=== PATIENT | female | born 1970 | race Caucasian/White ===

== ENCOUNTER 2018-09-23 11:02 | Emergency (ER) | payer MEDICAID ==
[~2018-09-23] VITALS: Ht 165.1 cm; Wt 44.8 kg
[2018-09-23 11:07] VITALS: BP 134/73
[2018-09-23] MEDS ORDERED: SODIUM CHLORIDE FLUSH 10ML SYR IVF ONE (11:30)
[2018-09-23] MEDS ORDERED: ASPIRIN 81 MG TABLET CHEW PO ONE (11:30)
--- NOTE | 2018-09-23 11:51 | NUR ---
THIS IS A 48 Y/O FEMALE ARRIVING TO THE ED WITH C/O OF CHEST PRESSURE AND PAIN TO RIGHT AND LEFT SIDES. PT DESCRIBES PAIN PRESSURE, SHARP AND TIGHTNESS AND BELIEVES SHE NEEDS AN EKG. PT ON ARRIVAL AMBULATES WITHOUT DISTRESS AND IS BEHAVING ANXIOUSLY AND TALKING IN THE ROOM ABOUT HOW TIRED SHE IS. PT HAS NO OBIVIOUS SIGNS OF TRAUMA AND EQUAL CHEST RISE AND CTA ON ALL LUNG DHALIWAL. PT CONNECTED TO MONITORS AND CALL LIGHT IN REACH. AWAITING FURHTER ORDERS.
[2018-09-23] MEDS ORDERED: ASPIRIN 81 MG TABLET CHEW ONE ×2 (11:55→12:16)
--- NOTE | 2018-09-23 11:57 | NUR ---
REPORT TO JACQUIE COREAS RN.
[2018-09-23 12:12] LABS: ALBUMIN 3.7 g/dL (3.4-5.0); ANION GAP 5 mmol/L (5-15); BASOPHILS # (AUTO) 0.02 x10^3/uL (0-0.1); BASOPHILS % (AUTO) 0 % (0-1); CALCIUM 8.6 mg/dL (8.5-10.1); CHLORIDE 113 mmol/L (98-107); EOSINOPHILS # (AUTO) 0.06 x10^3/uL (0-0.4); EOSINOPHILS % (AUTO) 1 % (1-7); LYMPHOCYTES # (AUTO) 1.31 x10^3/uL (1-3.4); LYMPHOCYTES % (AUTO) 18 % (22-44); MD NO; MEAN CORPUSCULAR HEMOGLOBIN 29.8 pg (27.0-34.8); MEAN CORPUSCULAR HGB CONC 33.7 g/dL (32.4-35.8); MEAN CORPUSCULAR VOLUME 88.3 fL (80-100); MEAN PLATELET VOLUME 8.6 fL (7.4-10.4); MONOCYTES # (AUTO) 0.57 x10^3/uL (0.2-0.8); MONOCYTES % (AUTO) 8 % (2-9); NEUTROPHILS # (AUTO) 5.21 x10^3/uL (1.8-6.8); NEUTROPHILS % (AUTO) 73 % (42-75); PLATELET COUNT 234 x10^3/uL (130-400); RED BLOOD COUNT 4.41 x10^6/uL (3.82-5.3); RED CELL DISTRIBUTION WIDTH 14.7 % (9.6-15.2)
[2018-09-23 12:19] LABS: TROPONIN I < 0.015 ng/mL (0.000-0.045)
--- NOTE | 2018-09-23 12:29 | NUR ---
ALL RESULTS BACK AT THIS TIME, CHART UP FOR RECHECK
--- NOTE | 2018-09-23 13:04 | NUR ---
Patient/Caregiver given discharge instructions and they have confirmed that they understand the instructions. Patient ambulatory with steady gait.
== END 2018-09-23 13:04 | disposition home or self-care (01) ==
LOC: ED 12:52
DX: R07.2 Precordial pain (principal)
CPT/HCPCS: 36415; 71045; 80048; 82040; 84484; 85025; 93005; 99284

== ENCOUNTER 2018-09-30 14:32 | Emergency (ER) | payer MEDICAID ==
[~2018-09-30] VITALS: Ht 165.1 cm; Wt 65.5 kg
[2018-09-30 14:35] VITALS: BP 142/92
[2018-09-30] MEDS ORDERED: DEXAMETHASONE 4 MG/ML, 1ML PO ONE (15:30)
[2018-09-30] MEDS ORDERED: DEXAMETHASONE 4 MG/ML, 5ML ONE (15:37)
--- NOTE | 2018-09-30 15:54 | NUR ---
Patient/Caregiver given discharge instructions and they have confirmed that they understand the instructions. Patient ambulatory with steady gait.
== END 2018-09-30 15:56 | disposition home or self-care (01) ==
LOC: ED 15:50
DX: J02.8 Acute pharyngitis due to other specified organisms (principal); I10 Essential (primary) hypertension
CPT/HCPCS: 87081; 87880; 99283; J1100; 87147

== ENCOUNTER 2018-10-04 23:40 | Emergency (ER) | payer MEDICAID ==
[~2018-10-04] VITALS: Ht 165.1 cm; Wt 65.0 kg
[2018-10-04 23:41] VITALS: BP 119/69
--- NOTE | 2018-10-05 01:00 | NUR ---
pt to room from lobby
--- NOTE | 2018-10-05 01:17 | NUR ---
ENTERED ROOM TO MEET PT. PT NOT AROUSABLE TO LOUD VERBAL COMMAND. PT AWAKENS TO GENTLE TOUCH. PT STATES HER CHEST PAIN IS NOW GONE. PT DOES NOT ANSWER QUESTION OF WHAT SHE WOULD LIKE TO DO FOR HER SHE QUICKLY FALLS BACK TO SLEEP.
[2018-10-05 02:35] LABS: BASOPHILS # (AUTO) 0.04 x10^3/uL (0-0.1); BASOPHILS % (AUTO) 1 % (0-1); EOSINOPHILS # (AUTO) 0.11 x10^3/uL (0-0.4); EOSINOPHILS % (AUTO) 2 % (1-7); LYMPHOCYTES # (AUTO) 2.46 x10^3/uL (1-3.4); LYMPHOCYTES % (AUTO) 35 % (22-44); MD NO; MEAN CORPUSCULAR HEMOGLOBIN 29.6 pg (27.0-34.8); MEAN CORPUSCULAR HGB CONC 33.8 g/dL (32.4-35.8); MEAN CORPUSCULAR VOLUME 87.4 fL (80-100); MEAN PLATELET VOLUME 8.3 fL (7.4-10.4); MONOCYTES % (AUTO) 7 % (2-9); NEUTROPHILS # (AUTO) 3.92 x10^3/uL (1.8-6.8); NEUTROPHILS % (AUTO) 56 % (42-75); PLATELET COUNT 235 x10^3/uL (130-400); RED BLOOD COUNT 4.64 x10^6/uL (3.82-5.3); RED CELL DISTRIBUTION WIDTH 14.5 % (9.6-15.2)
--- NOTE | 2018-10-05 02:47 | NUR ---
Break RN: Patient back from X ray.
[2018-10-05 02:48] LABS: ALANINE AMINOTRANSFERASE 24 U/L (12-78); ALBUMIN 3.5 g/dL (3.4-5.0); ANION GAP 3 mmol/L (5-15); CALCIUM 8.4 mg/dL (8.5-10.1); CHLORIDE 113 mmol/L (98-107); CREATININE 0.84 mg/dL (0.55-1.02)
[2018-10-05 02:50] LABS: ALKALINE PHOSPHATASE 102 U/L (45-117); BILIRUBIN,TOTAL 0.1 mg/dL (0.2-1.0); TOTAL PROTEIN 6.3 g/dL (6.4-8.2)
--- NOTE | 2018-10-05 03:31 | NUR ---
PT GIVEN DC INSTRUCTIONS. PT REQUIRING MUCH ENCOURAGEMENT TO GET OUT OF BED.
--- NOTE | 2018-10-05 03:35 | NUR ---
PT IN ROOM "ROLLING A CIG" PT WAS INFORMED IT IS TIME TO LEAVE. PT VERBALLY UNCOOPERATIVE. PT TOOK MUCH ENCOURAGEMENT TO LEAVE.
== END 2018-10-05 03:38 | disposition home or self-care (01) ==
LOC: ED 10-05 02:13
DX: R07.89 Other chest pain (principal); G89.29 Other chronic pain; M54.6 Pain in thoracic spine; I10 Essential (primary) hypertension; F17.200 Nicotine dependence, unspecified, uncomplicated
CPT/HCPCS: 36415; 71046; 80053; 83690; 85025; 93005; 99284

== ENCOUNTER 2018-10-12 17:14 | Emergency (ER) | payer MEDICAID ==
[~2018-10-12] VITALS: Ht 165.1 cm; Wt 60.0 kg
--- NOTE | 2018-10-12 17:36 | NUR ---
PT YELLING AND CRYING INTERMITTENTLY, INCONSULABLE AND SWEARING. PT UNCOOPERATIVE WITH ASSESSMENT
[2018-10-12] MEDS ORDERED: BICILLIN-LA 1,200,000 UNITS/2 ML IM ONE (18:00)
--- NOTE | 2018-10-12 18:33 | NUR ---
Patient/Caregiver given discharge instructions and they have confirmed that they understand the instructions. Patient ambulatory with steady gait.
--- NOTE | 2018-10-12 18:34 | NUR ---
Patient refused DC vitals.
== END 2018-10-12 18:34 | disposition home or self-care (01) ==
LOC: ED 17:24
DX: K02.9 Dental caries, unspecified (principal); I10 Essential (primary) hypertension; Z87.891 Personal history of nicotine dependence
CPT/HCPCS: 64400; 96372; 99284; J0561

== ENCOUNTER 2019-04-04 01:25 | Emergency (ER) | payer MEDICAID ==
[~2019-04-04] VITALS: Ht 165.1 cm; Wt 62.0 kg
[2019-04-04 01:26] VITALS: BP 130/85
[2019-04-04] MEDS ORDERED: ACETAMINOPHEN 500 MG TABLET ONE (01:41)
[2019-04-04] MEDS ORDERED: ACETAMINOPHEN 500 MG TABLET PO ONE (02:00)
== END 2019-04-04 02:19 | disposition home or self-care (01) ==
LOC: ED 02:05
DX: G89.29 Other chronic pain (principal); M54.9 Dorsalgia, unspecified; I10 Essential (primary) hypertension; Z72.9 Problem related to lifestyle, unspecified; F17.200 Nicotine dependence, unspecified, uncomplicated
CPT/HCPCS: 99283